=== PATIENT | female | born 1995 | race Caucasian/White ===

== ENCOUNTER 2021-09-29 12:29 | Emergency (ER) | payer SELFPAY ==
[~2021-09-29] VITALS: Ht 172.7 cm; Wt 75.0 kg
[2021-09-29 12:34] VITALS: BP 128/89
--- NOTE | 2021-09-29 12:57 | NUR ---
TIMOTHY CONTACTED CASE #[id number] PER PATIENT SHE HAS ALREADY BEEN PROVIDED INFO FOR [facility]
--- NOTE | 2021-09-29 13:17 | NUR ---
[facility] CALLED AT THE REQUEST OF DALTON GONZALEZ [employer] RN
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
--- NOTE | 2021-09-29 13:31 | NUR ---
[facility] is on phone
== END 2021-09-29 14:31 | disposition home or self-care (01) ==
LOC: ER 12:30
DX: S10.93XA Contusion of unspecified part of neck, initial encounter (principal); S30.0XXA Contusion of lower back and pelvis, initial encounter; S09.90XA Unspecified injury of head, initial encounter; T71.9XXA Asphyxiation due to unspecified cause, initial encounter; F17.200 Nicotine dependence, unspecified, uncomplicated; Z72.89 Other problems related to lifestyle; Z56.0 Unemployment, unspecified; Z79.899 Other long term (current) drug therapy; Y04.8XXA Assault by other bodily force, initial encounter; Y93.89 Activity, other specified; Y92.89 Other specified places as the place of occurrence of the external cause; Y99.8 Other external cause status
CPT/HCPCS: 70360; 99283